=== PATIENT | female | born 1990 | race Two or more races ===

== ENCOUNTER 2022-11-27 21:49 | Emergency (ER) | payer SELFPAY ==
[~2022-11-27] VITALS: Ht 177.8 cm; Wt 82.0 kg
[2022-11-27 23:02] LABS: Urine Bacteria FEW /hpf (None Seen); Urine Blood Negative /uL (Negative); Urine Clarity Clear (Clear); Urine Color Yellow (Yellow); Urine Mucus FEW (None Seen); Urine Protein, UAD TRACE (Negative); Urine Specific Gravity 1.019 (1.001-1.035); Urine Urobilinogen Normal (Negative); Urine WBC 13 /hpf (0 - 5)
[2022-11-27 23:55] LABS: Basophils # (auto) 0 10 ^3/uL (0-0.2); Basophils % (auto) 0.3 % (0.0-2.0); Eosinophils # (auto) 0.1 10 ^3/uL (0-0.8); Eosinophils % (auto) 0.9 % (0.0-7.0); Hematocrit 38.4 % (36.0-46.0); Lymphocytes # (auto) 3.1 10 ^3/uL (0.4-5.4); Lymphocytes % (auto) 28.8 % (10.0-50.0); Mean Corpuscular Hemoglobin 31.1 pg (28.0-32.0); Mean Corpuscular Hgb Conc. 33.8 g/dL (32.0-36.0); Mean Corpuscular Volume 91.9 fL (80.0-100.0); Monocytes # (auto) 0.6 10 ^3/uL (0-1.3); Monocytes % (auto) 5.2 % (0.0-12.0); Neutrophils # (auto) 6.9 10 ^3/uL (1.6-8.6); Neutrophils % (auto) 64.8 % (37.0-80.0); Red Blood Cells 4.18 10^6/uL (4.0-5.20); Red Cell Distribution Width 14.2 % (11.8-14.3); White Blood Cell 10.6 10^3/uL (4.4-10.8)
[2022-11-28 00:07] LABS: Alkaline Phosphatase 72 U/L (46-116); Anion Gap 5 (5-15); Aspartate Aminotransferase < 8 U/L (13-40); Calcium 8.9 mg/dL (8.7-10.4); Carbon Dioxide 25 mmol/L (20-30); Chloride 107 mmol/L (98-107); Glucose 89 mg/dL (74-106); Lipase 36 U/L (12-53); Potassium 3.4 mmol/L (3.5-5.1); Sodium 137 mmol/L (136-145)
[2022-11-28 00:08] LABS: Bilirubin, Total 0.4 mg/dL (0.2-1.0); Total Protein 6.8 g/dL (5.7-8.2)
[2022-11-28 00:09] LABS: Alanine Aminotransferase 9 U/L (7-40); BUN/Creatinine Ratio 8.1 (10.0-20.0); Blood Urea Nitrogen < 5 mg/dL (9-23)
[2022-11-28] MEDS ORDERED: ONDANSETRON HCL 4 MG/2 ML VIAL IV ONE (01:45)
[2022-11-28] MEDS ORDERED: ACETAMINOPHEN 325 MG TAB PO ONE (01:45)
[2022-11-28] MEDS ORDERED: SODIUM CHLORIDE 0.9% 1,000 ML IV ONE (01:45)
[2022-11-28] MEDS ORDERED: CEPH500C PO (01:46)
[2022-11-28] MEDS ORDERED: ZOFR4T PO (01:46)
[2022-11-28 02:19] VITALS: BP 115/67; PULSE 86; RESP 16; TEMP 97.8; O2SAT 98
== END 2022-11-28 02:53 | disposition home or self-care (01) ==
LOC: ER 21:49
DX: S33.5XXA Sprain of ligaments of lumbar spine, initial encounter (principal); O9A.212 Injury, poisoning and certain other consequences of external causes complicating pregnancy, second trimester; O23.41 Unspecified infection of urinary tract in pregnancy, first trimester; O21.0 Mild hyperemesis gravidarum; R10.2 Pelvic and perineal pain
CPT/HCPCS: 36415; 76805; 80053; 81001; 83690; 84702; 85025; 96361; 96374; 99284; J2405; J7030

== ENCOUNTER 2023-05-05 02:10 | Inpatient (IN) | payer MEDICAID, OTHER ==
[2023-05-05] VITALS (38 sets, daily range): BP systolic 80–121; BP diastolic 37–81; PULSE 16–88; RESP 10–86; TEMP 97.1–99.2; O2SAT 93–100
[~2023-05-05] VITALS: Ht 167.6 cm; Wt 85.0 kg
[~2023-05-05 02:10] MED LIST: CEPH500C PO; ZOFR4T PO
[2023-05-05] MEDS: LACTATED RINGER'S 1,000 ML IV ONE (02:30)
[2023-05-05 03:26] LABS: Basophils # (auto) 0 10 ^3/uL (0-0.2); Basophils % (auto) 0.2 % (0.0-2.0); Eosinophils # (auto) 0 10 ^3/uL (0-0.8); Eosinophils % (auto) 0.4 % (0.0-7.0); Hematocrit 38.5 % (36.0-46.0); Hemoglobin 12.9 g/dL (12.2-16.2); Lymphocytes # (auto) 2.2 10 ^3/uL (0.4-5.4); Lymphocytes % (auto) 18.8 % (10.0-50.0); Mean Corpuscular Hemoglobin 30.5 pg (28.0-32.0); Mean Corpuscular Hgb Conc. 33.5 g/dL (32.0-36.0); Mean Corpuscular Volume 90.9 fL (80.0-100.0); Monocytes # (auto) 0.5 10 ^3/uL (0-1.3); Monocytes % (auto) 3.9 % (0.0-12.0); Neutrophils # (auto) 8.9 10 ^3/uL (1.6-8.6); Neutrophils % (auto) 76.7 % (37.0-80.0); Red Blood Cells 4.23 10^6/uL (4.0-5.20); Red Cell Distribution Width 14.8 % (11.8-14.3); White Blood Cell 11.6 10^3/uL (4.4-10.8)
[2023-05-05] MEDS: ACETAMINOPHEN IV 1000 MG/100ML (10MG/ML) IV ONE (03:29)
[2023-05-05] MEDS: LACTATED RINGER'S 1,000 ML IV SCH (03:30)
[2023-05-05 03:32] LABS: Urine Bacteria FEW /hpf (None Seen); Urine Blood Negative /uL (Negative); Urine Clarity HAZY (Clear); Urine Color Yellow (Yellow); Urine Mucus FEW (None Seen); Urine Protein, UAD Negative (Negative); Urine Specific Gravity 1.016 (1.001-1.035); Urine Urobilinogen Normal (Negative); Urine WBC 46 /hpf (0 - 5); Urine pH 7.5 (5.0-8.0)
[2023-05-05 03:39] LABS: Amphetamine Screen, Urine Neg (NEGATIVE); Barbiturate Scree,Urine Neg (NEGATIVE); Benzodiazephine Screen, Urine Neg (NEGATIVE); Cannabinoid Screen, Urine Neg (NEGATIVE); Cocaine Screen, Urine Neg (NEGATIVE); Opiate Scree,Urine Neg (NEGATIVE); Phencyclidine Screen, Urine Neg (NEGATIVE)
[2023-05-05 03:42] LABS: Albumin 3.7 g/dL (3.2-4.8); Alkaline Phosphatase 181 U/L (46-116); Anion Gap 11 (5-15); Aspartate Aminotransferase 14 U/L (13-40); Bilirubin, Total 0.6 mg/dL (0.2-1.0); Calcium 8.7 mg/dL (8.7-10.4); Carbon Dioxide 20 mmol/L (20-30); Chloride 103 mmol/L (98-107); Glucose 82 mg/dL (74-106); INR 0.9 (0.9-1.15); Partial Thromboplastin Time 27.9 SEC (24.5-34.5); Potassium 3.6 mmol/L (3.5-5.1); Prothrombin Time 9.5 sec (9.3-11.8); Sodium 134 mmol/L (136-145); Total Protein 6.5 g/dL (5.7-8.2)
[2023-05-05 03:45] LABS: Alanine Aminotransferase < 9 U/L (7-40); BUN/Creatinine Ratio 7.5 (10.0-20.0); Blood Urea Nitrogen < 5 mg/dL (9-23)
[2023-05-05 03:49] LABS: Lactic Acid w/Reflex 2.2 mmol/L (0.4-2.0)
[2023-05-05] MEDS: PIPERACILLIN-TAZOB 3.375GM 100 ML IV SCH (03:57)
[2023-05-05 04:02] LABS: Rapid Influenza A Negative (Negative); Rapid Influenza B Negative (Negative)
[2023-05-05 04:03] LABS: COVID19 ANTIGEN SOFIA FIA NEGATIVE (NEGATIVE)
[2023-05-05] MEDS: LIDOCAINE 2%HCL (LOCAL ANESTH.) INJ 20ML MDV ONE (05:14)
[2023-05-05] MEDS ORDERED: ROCURONIUM 10MG/ML 10ML VIAL IV ONE (05:23)
[2023-05-05] MEDS ORDERED: PROPOFOL 10 MG/ML 20 ML IV ONE (05:23)
[2023-05-05] MEDS ORDERED: fentaNYL CITRATE 100 MCG/2 ML VL ONE (05:29)
[2023-05-05] MEDS ORDERED: MIDAZOLAM HCL 2MG/2ML 2ml VIAL (1mg/ml) ONE (05:29)
[2023-05-05] MEDS ORDERED: HYDROmorphone HCL 2 MG/ML VL/or syr ONE (05:29)
[2023-05-05] MEDS ORDERED: ONDANSETRON HCL 4 MG/2 ML VIAL ONE (05:31)
[2023-05-05] MEDS ORDERED: GLYCOPYRROLATE 0.2 MG/ML 1ML VIAL ONE (05:31)
[2023-05-05] MEDS ORDERED: DexAMETHasone SOD PHOS 10MG/1ML VIAL INJ ONE (05:31)
[2023-05-05] MEDS ORDERED: TRANEXAMIC ACID 20 ML ONE (05:33)
[2023-05-05] MEDS: METHYLERGONOVINE MALEATE 0.2 MG/ML AMP IM ONE (05:34)
[2023-05-05] MEDS: CARBOPROST TROMETHAMINE 250 MCG/1ML VIAL IM ONE (05:35)
[2023-05-05] MEDS ORDERED: KETAMINE 50mg/ML 1ml syringe ONE (05:39)
[2023-05-05] MEDS ORDERED: SUGAMMADEX 200mg/2ml Vial (100MG/ML) IV ONE (05:59)
[2023-05-05] MEDS ORDERED: MEPERIDINE HCL (25 MG/ML) 1ML VIAL ONE (06:25)
[2023-05-05] MEDS ORDERED: ONDANSETRON HCL 4 MG/2 ML VIAL IV PRN ×2 (06:30→13:30)
[2023-05-05] MEDS ORDERED: FAMOTIDINE (10MG/ML) 2ML VL IV PRN (06:30)
[2023-05-05] MEDS ORDERED: HYDROmorphone HCL 2 MG/ML VL/or syr IV PRN ×2 (06:30→13:30)
[2023-05-05] MEDS: HYDROmorphone HCL 2 MG/ML VL/or syr ONE (06:35)
[2023-05-05] MEDS: HYDROmorphone HCL 2 MG/ML VL/or syr IV ONE ×4 (06:35→07:15)
[2023-05-05 07:41] LABS: Basophils # (auto) 0.1 10 ^3/uL (0-0.2); Basophils % (auto) 0.3 % (0.0-2.0); Eosinophils # (auto) 0 10 ^3/uL (0-0.8); Hematocrit 32.5 % (36.0-46.0); Lymphocytes # (auto) 1.5 10 ^3/uL (0.4-5.4); Lymphocytes % (auto) 7.3 % (10.0-50.0); Mean Corpuscular Hemoglobin 30.7 pg (28.0-32.0); Mean Corpuscular Hgb Conc. 33.9 g/dL (32.0-36.0); Mean Corpuscular Volume 90.6 fL (80.0-100.0); Monocytes # (auto) 0.5 10 ^3/uL (0-1.3); Monocytes % (auto) 2.4 % (0.0-12.0); Neutrophils # (auto) 18.2 10 ^3/uL (1.6-8.6); Red Blood Cells 3.59 10^6/uL (4.0-5.20); Red Cell Distribution Width 14.5 % (11.8-14.3); White Blood Cell 20.2 10^3/uL (4.4-10.8)
[2023-05-05 07:58] LABS: INR 0.94 (0.9-1.15); Prothrombin Time 9.9 sec (9.3-11.8)
[2023-05-05 08:08] LABS: Alanine Aminotransferase 16 U/L (7-40); Albumin 2.9 g/dL (3.2-4.8); Alkaline Phosphatase 146 U/L (46-116); Anion Gap 8 (5-15); Aspartate Aminotransferase 26 U/L (13-40); Calcium 8.2 mg/dL (8.5-10.1); Carbon Dioxide 20 mmol/L (20-30); Chloride 106 mmol/L (98-107); Glucose 91 mg/dL (74-106); Potassium 3.6 mmol/L (3.5-5.1); Sodium 134 mmol/L (136-145)
[2023-05-05 08:09] LABS: BUN/Creatinine Ratio 8.8 (10.0-20.0); Bilirubin, Total 0.5 mg/dL (0.2-1.0); Blood Urea Nitrogen < 5 mg/dL (9-23); Total Protein 5.2 g/dL (5.7-8.2)
[2023-05-05 13:09] LABS: Hematocrit 34.2 % (36.0-46.0); Hemoglobin 11.3 g/dL (12.2-16.2)
[2023-05-05] MEDS: LACT. RINGERS/OXYTOCIN 20UNITS 1,000 ML IV ONE (13:30)
[2023-05-05] MEDS ORDERED: HYDROcodone-ACET 10/325MG TAB PO PRN (13:30)
[2023-05-05] MEDS: MORPHINE SULFATE INJ 2 MG/ml SYRG IV PRN (14:03)
[2023-05-05 18:49] LABS: Hemoglobin 9.3 g/dL (12.2-16.2)
[2023-05-05] MEDS: DOCUSATE SOD 100 MG CAP PO PRN (21:08)
[2023-05-05] MEDS: HYDROcodone-ACET 5/325MG TAB PO PRN (21:08)
[2023-05-05] MEDS: GUM (CHEWING) 1 GUM CHEW CHEW ONE (22:00)
[2023-05-06] VITALS (7 sets, daily range): BP systolic 88–97; BP diastolic 42–84; PULSE 59–83; RESP 16–19; TEMP 97.3–99.2; O2SAT 94–98
[2023-05-06 01:13] LABS: Hematocrit 26.5 % (36.0-46.0)
[2023-05-06] MEDS: IBUPROFEN 800 MG TAB PO PRN (02:11)
[2023-05-06 06:47] LABS: Basophils # (auto) 0 10 ^3/uL (0-0.2); Basophils % (auto) 0.2 % (0.0-2.0); Eosinophils # (auto) 0.1 10 ^3/uL (0-0.8); Eosinophils % (auto) 0.6 % (0.0-7.0); Hematocrit 25.5 % (36.0-46.0); Hemoglobin 8.5 g/dL (12.2-16.2); Lymphocytes # (auto) 2.6 10 ^3/uL (0.4-5.4); Lymphocytes % (auto) 18.2 % (10.0-50.0); Mean Corpuscular Hemoglobin 30.6 pg (28.0-32.0); Mean Corpuscular Hgb Conc. 33.3 g/dL (32.0-36.0); Mean Corpuscular Volume 91.9 fL (80.0-100.0); Monocytes # (auto) 0.8 10 ^3/uL (0-1.3); Monocytes % (auto) 5.3 % (0.0-12.0); Neutrophils # (auto) 10.9 10 ^3/uL (1.6-8.6); Neutrophils % (auto) 75.7 % (37.0-80.0); Red Blood Cells 2.77 10^6/uL (4.0-5.20); Red Cell Distribution Width 14.5 % (11.8-14.3); White Blood Cell 14.4 10^3/uL (4.4-10.8)
[2023-05-06 07:22] LABS: Albumin 2.6 g/dL (3.2-4.8); Alkaline Phosphatase 116 U/L (46-116); Anion Gap 7 (5-15); Aspartate Aminotransferase 17 U/L (13-40); BUN/Creatinine Ratio 11.1 (10.0-20.0); Blood Urea Nitrogen 6 mg/dL (9-23); Calcium 8.1 mg/dL (8.5-10.1); Carbon Dioxide 23 mmol/L (20-30); Chloride 109 mmol/L (98-107); Glucose 103 mg/dL (74-106); Potassium 3.5 mmol/L (3.5-5.1); Sodium 139 mmol/L (136-145)
[2023-05-06 07:23] LABS: Alanine Aminotransferase < 9 U/L (7-40); Bilirubin, Total 0.3 mg/dL (0.2-1.0); Total Protein 4.6 g/dL (5.7-8.2)
[2023-05-07 04:56] VITALS: BP 95/57; PULSE 61; RESP 18; TEMP 97.8; O2SAT 96
[2023-05-07 05:45] LABS: Basophils # (auto) 0 10 ^3/uL (0-0.2); Basophils % (auto) 0.3 % (0.0-2.0); Eosinophils # (auto) 0.2 10 ^3/uL (0-0.8); Eosinophils % (auto) 1.4 % (0.0-7.0); Hematocrit 24.5 % (36.0-46.0); Hemoglobin 8.5 g/dL (12.2-16.2); Lymphocytes # (auto) 3.2 10 ^3/uL (0.4-5.4); Lymphocytes % (auto) 27.5 % (10.0-50.0); Mean Corpuscular Hemoglobin 31.7 pg (28.0-32.0); Mean Corpuscular Hgb Conc. 34.6 g/dL (32.0-36.0); Mean Corpuscular Volume 91.6 fL (80.0-100.0); Monocytes # (auto) 0.4 10 ^3/uL (0-1.3); Monocytes % (auto) 3.8 % (0.0-12.0); Neutrophils # (auto) 7.7 10 ^3/uL (1.6-8.6); Red Blood Cells 2.67 10^6/uL (4.0-5.20); Red Cell Distribution Width 14.5 % (11.8-14.3); White Blood Cell 11.6 10^3/uL (4.4-10.8)
[2023-05-07 06:05] LABS: Albumin 2.7 g/dL (3.2-4.8); Alkaline Phosphatase 109 U/L (46-116); Anion Gap 6 (5-15); Aspartate Aminotransferase 17 U/L (13-40); BUN/Creatinine Ratio 9.8 (10.0-20.0); Bilirubin, Total 0.3 mg/dL (0.2-1.0); Blood Urea Nitrogen 5 mg/dL (9-23); Calcium 8.1 mg/dL (8.5-10.1); Carbon Dioxide 24 mmol/L (20-30); Chloride 108 mmol/L (98-107); Glucose 81 mg/dL (74-106); Potassium 3.9 mmol/L (3.5-5.1); Sodium 138 mmol/L (136-145)
[2023-05-07 06:06] LABS: Total Protein 4.8 g/dL (5.7-8.2)
[2023-05-07 06:34] LABS: Alanine Aminotransferase < 9 U/L (7-40)
[2023-05-07] MEDS: FERROUS SULFATE 325mg EC TAB PO SCH (08:04)
[2023-05-07 08:47] VITALS: BP 109/68; PULSE 66; RESP 18; TEMP 97.8; O2SAT 95
[2023-05-07 13:18] VITALS: BP 107/64; PULSE 78; RESP 18; TEMP 97.7; O2SAT 95
[2023-05-07 17:21] VITALS: BP 115/69; PULSE 72; RESP 17; TEMP 98.2; O2SAT 97
[2023-05-07 20:00] VITALS: PULSE 78; RESP 18; O2SAT 96
[2023-05-07 22:00] VITALS: BP 96/54; PULSE 79; RESP 18; TEMP 98; O2SAT 96
[2023-05-08 03:06] LABS: Rubella Antibodies, IgG 1.19 index (Immune >0.99)
[2023-05-08 05:06] VITALS: BP 121/52; PULSE 63; RESP 20; TEMP 97.8; O2SAT 96
[2023-05-08 05:07] LABS: RPR Non Reactive (Non Reactive)
[2023-05-08] MEDS ORDERED: HYDR-4902 PO (06:04)
[2023-05-08] MEDS ORDERED: FER325T PO (06:04)
[2023-05-08] MEDS ORDERED: IBUP-1455 PO (06:04)
[2023-05-08] MEDS ORDERED: DOCU-265 PO (06:04)
[2023-05-08 08:00] VITALS: BP 115/73; PULSE 70; RESP 18; TEMP 97.9
[2023-05-08 09:00] VITALS: BP 115/73; PULSE 70; RESP 18; TEMP 97.9; O2SAT 96
[2023-05-08 13:00] VITALS: BP 98/56; PULSE 79; RESP 18; TEMP 98.1; O2SAT 95
[2023-05-08 17:00] VITALS: BP 102/49; PULSE 79; RESP 18; TEMP 98.6; O2SAT 97
[2023-05-08 18:06] LABS: Treponema pallidum Ab (FTA-Ab) Non Reactive (Non Reactive)
[2023-05-09 07:07] LABS: Chlamydia Trachomatis, NAA Negative (Negative); Neisseria gonorrhoeae, NAA Negative (Negative)
== END 2023-05-08 21:55 | disposition home or self-care (01) | DRG 540 ==
LOC: LDRP 02:10 → OBSVTOIN 02:24 → LDRP 03:51 → ICU WEST 07:40 → TELE-WESTW 05-06 01:22
PROVIDERS: ADMIT Obstetrics & Gynecology; ATTEND Obstetrics & Gynecology
PROC: 10D00Z1 Extraction of Products of Conception, Low, Open Approach (ICD-10-PCS; principal; 2023-05-05 05:11)
DX: O75.3 Other infection during labor (principal); D62 Acute posthemorrhagic anemia; O72.1 Other immediate postpartum hemorrhage; O98.82 Other maternal infectious and parasitic diseases complicating childbirth; O48.0 Post-term pregnancy; O76 Abnormality in fetal heart rate and rhythm complicating labor and delivery; O90.81 Anemia of the puerperium; O69.1XX0 Labor and delivery complicated by cord around neck, with compression, not applicable or unspecified; O77.0 Labor and delivery complicated by meconium in amniotic fluid; Z20.822 Contact with and (suspected) exposure to COVID-19; Z37.0 Single live birth; Z3A.40 40 weeks gestation of pregnancy; Z87.442 Personal history of urinary calculi
CPT/HCPCS: 36415; 59025; 71045; 74018; 74177; 76805; 80053; 80307; 81001; 81002; 82962; 83605; 84439; 84443; 84550; 85014; 85018; 85025; 85610; 85730; 86592; 86703; 86762; 86850; 86900; 86901; 86920; 87040; 87081; 87086; 87340; 87426; 87804; 94760; 96360; 96361; G0378; J0131; J1100; J2250; J2405; J2543; J2590; J2704